=== PATIENT | male | born 1950 | race African-American/Black ===

== ENCOUNTER 2021-03-12 19:52 | Inpatient (IN) | payer MEDICARE ==
[~2021-03-12] VITALS: Ht 177.8 cm; Wt 77.1 kg
--- NOTE | 2021-03-12 00:15 | NUR ---
MOLD YARN SUPERVISOR OPENING REPORT GOTTEN FROM MALLORY CHARLES. PATIENT CAME IN THE UNIT AT THIS TIME VIA GURNEY. PATIENT DROWSY BUT EASY TO AROUSE AND CAN ANSWER QUESTIONS. PATIENT AMBULATORY. NO S/S OF DISTRESS, PUT IN TO 3L OF OXYGEN, TOLERATING. NO C/O PAIN JENNIFER. INTACT SKIN. NO FLUIDS RUNNING. VS FOLLOWS: T- 98%; P- 86, 02 SAT 96, BP- 143/79, RR- 20. WILL CONTINUE TO MONITOR.
--- NOTE | 2021-03-12 20:11 | NUR ---
PT AAOX4. BIBS FOR C/O COUGH, CONGESTION AND DIFFICULTY BREATHING. PLACED IN BED 3 ON MONITOR AND PULSE OX.
[2021-03-12] MEDS ORDERED: ALBUTEROL FS 2.5 MG/0.5 ML VIAL.NEB NEB ONE (20:30)
[2021-03-12] MEDS ORDERED: IPRATROPIUM NEB FS 0.5 MG/2.5 ML AMPUL.NEB NEB ONE (20:30)
[2021-03-12] MEDS ORDERED: IPRATROPIUM NEB FS 0.5 MG/2.5 ML AMPUL.NEB ONE (20:36)
[2021-03-12] MEDS ORDERED: ALBUTEROL FS 2.5 MG/3 ML VIAL.NEB ONE (20:36)
--- NOTE | 2021-03-12 20:45 | NUR ---
RT CALLED FOR BREATHING TREATMENT
[2021-03-12 20:50] LABS: BASOPHILS # (AUTO) 0.1 /CMM (0.0-0.2); BASOPHILS % (AUTO) 0.7 % (0.0-2.0); EOSINOPHILS % (AUTO) 2.4 % (0.0-6.0); HEMATOCRIT 48 % (39-51); HEMOGLOBIN 15.6 g/dL (13.5-17.5); LYMPHOCYTES # (AUTO) 1.7 /CMM (0.8-4.8); LYMPHOCYTES % (AUTO) 23.2 % (20.0-44.0); MEAN CORPUSCULAR HGB CONC 33 g/dl (31.0-36.0); MEAN CORPUSCULAR VOLUME 85 fL (80-96); MONOCYTES # (AUTO) 0.7 /CMM (0.1-1.30); MONOCYTES % (AUTO) 9.4 % (2.0-12.0); NEUTROPHILS # (AUTO) 4.7 /CMM (1.8-8.9); NEUTROPHILS % (AUTO) 64.3 % (43.0-81.0); PLATELET COUNT (AUTO) 342 /CMM (150-450); RED BLOOD CELL COUNT(AUTO) 5.66 MIL/uL (4.5-6.0); WHITE BLOOD COUNT (AUTO) 7.3 K/uL (4.3-11.0)
[2021-03-12 20:56] LABS: CALCIUM, SERUM 9.4 mg/dL (8.5-10.1); CARBON DIOXIDE 32 mmol/L (21-32); CHLORIDE 101 mmol/L (98-107); CREATININE 1.3 mg/dL (0.6-1.3); GLUCOSE 82 mg/dL (74-106); POTASSIUM 3.7 mmol/L (3.5-5.1); SODIUM SERUM 139 mmol/L (136-145); UREA NITROGEN, BLOOD 15 mg/dL (7-18)
[2021-03-12 21:09] LABS: ALANINE AMINOTRANSFERASE 14 U/L (12-78); ALBUMIN 3.6 g/dL (3.4-5.0); ALKALINE PHOSPHATASE 105 U/L (46-116); ASPARTATE AMINOTRANSFERASE 17 U/L (15-37); BILIRUBIN,TOTAL 0.6 mg/dL (0.2-1.0); NT-PRO BNP 196 pg/mL (0-125); TOTAL PROTEIN, SERUM 8.7 g/dL (6.4-8.2)
--- NOTE | 2021-03-12 22:01 | NUR ---
called leora valladares image read. being read currently
--- NOTE | 2021-03-12 22:27 | NUR ---
PT SAT 92-93%. PLACED ON 2L NC, SAT 95%.
[2021-03-12] MEDS ORDERED: AZITHROMYCIN 500 MG in IV D5W 250 ML IV ONE (22:30)
[2021-03-12] MEDS ORDERED: CEFTRIAXONE 1 G in IV D5W 50 ML IV ONE (22:30)
[2021-03-12] MEDS ORDERED: CEFTRIAXONE 1GM BAG (ER ONLY) 50 ML IV ONE (22:39)
[2021-03-12] MEDS ORDERED: AZITHROMYCIN 500 MG VIAL ONE (22:48)
--- NOTE | 2021-03-12 23:25 | NUR ---
covid negative, per lab
--- NOTE | 2021-03-13 00:39 | NUR ---
REPORT GIVEN, PT TRANSFERED PER ACLS PROTOCOL
[2021-03-13 02:10] VITALS: BP 143/79
[2021-03-13 04:03] VITALS: BP 140/85
[2021-03-13] MEDS ORDERED: BENZONATATE 100 MG CAPSULE PO PRN (05:00)
[2021-03-13] MEDS ORDERED: ACETAMINOPHEN 325 MG TABLET PO PRN (05:00)
[2021-03-13] MEDS ORDERED: ONDANSETRON HCL/PF 4 MG/2 ML VIAL IVP PRN (05:00)
[2021-03-13] MEDS ORDERED: Z GUARD REMEDY 2 OZ OINT TP PRN (05:00)
[2021-03-13] MEDS ORDERED: ZOLPIDEM TARTRATE 5 MG TABLET PO PRN (05:00)
[2021-03-13] MEDS: ENOXAPARIN SODIUM 40 MG/0.4 ML DISP.SYRIN SQ SCH (05:05)
--- NOTE | 2021-03-13 06:53 | NUR ---
MS RN CLOSING PATIENT IN BED WITH EYES CLOSED, EASY TO AROUSE. PATIENT ABLE TO MAKE NEEDS KNOWN. ALL NEEDS ATTENDED. NO S/S OF DISTRESS TOLERATING 3LPM OXYGEN VIA NC. PATIENT AMBULATES TO THE RESTROOM. L. AC IV IN SALINE LOCK. SAFETY KEPT IN PLACE THE WHOLE SHIFT: BED IN LOWEST, LOCKED POSITION, HOB ELEVATED, CALL LIGHT WITHIN REACH. WILL ENDORSE CARE TO MORNING SHIFT RN
[2021-03-13] MEDS: methylPREDNISolone SOD SUCC 40 MG/ML VIAL IV SCH ×3 (07:02→20:55)
--- NOTE | 2021-03-13 07:30 | NUR ---
m/s deckhand: notes received pt in bed awake, a/ox4, easily irritated, and demanding. pt refused skin assessment, pt only wearing his boxer, gown offered. noted with coughing. instructed to call for assistance. will continue to monitor.
[2021-03-13] MEDS ORDERED: NIFE30TA91 PO (07:59)
[2021-03-13 08:00] VITALS: BP 143/92
--- NOTE | 2021-03-13 08:00 | NUR ---
m/s orthopedic physician assistant: md visit seen and examined by DOMINIQUE (STEPHANIE) with new orders. for pulmo consult.
[2021-03-13] MEDS: IPRATROPIUM NEB FS 0.5 MG/2.5 ML AMPUL.NEB NEB SCH ×5 (08:12→23:33)
[2021-03-13] MEDS: ALBUTEROL FS 2.5 MG/3 ML VIAL.NEB NEB SCH ×5 (08:12→23:33)
[2021-03-13] MEDS: PANTOPRAZOLE 40 MG TABLET.DR PO SCH (08:44)
[2021-03-13] MEDS: GUAIFENESIN LA 600 MG TABLET.SA PO SCH ×2 (08:44→20:56)
[2021-03-13] MEDS: DOXYCYCLINE 100 MG in IV D5W 100 ML IV SCH ×2 (09:21→21:32)
[2021-03-13 09:24] LABS: ABG BASE EXCESS 2.8 mmol/L; ABG PCO2 34.4 mmHg (35.0-45.0); ABG PO2 59.9 mmHg (75.0-100.0); AaDO2 48.6 mmHg; COHb 0.8 % (0.5-1.5); MetHb 0.3 % (0.0-1.5); SITE, ABG Right Radial; VENT MODE, BG room air
--- NOTE | 2021-03-13 10:00 | NUR ---
m/s strategic planning specialist: pulmo consult seen and examined by dr. haynes with order. order acknowledged.
--- NOTE | 2021-03-13 14:00 | NUR ---
m/s general ledger accountant: notes noted iv out, per pt he removed because it was bothering him. inserted new iv to left hand, gauge #22.
[2021-03-13 16:00] VITALS: BP 133/70
--- NOTE | 2021-03-13 17:30 | NUR ---
m/s joint special operations: notes pt hand me his iv line, stated, it got pulled out by accident.
--- NOTE | 2021-03-13 18:45 | NUR ---
m/s business process associate: notes about to start iv insertion, but 2 friends came in at this time, pt wants to wait 'til they are gone for iv insertion.
[2021-03-13 20:00] VITALS: BP 120/71
--- NOTE | 2021-03-13 20:00 | NUR ---
MS RN OPENING NOTE RECEIVED PT AWAKE IN BED. A/O X4. PT ON 3LPM O2 VIA NC. NO SOB NOTED. NO S/S OF RESPIRATORY DISTRESS. PT IS AMBULATORY WITH [facility]. PT HAS NO C/O PAIN AT THIS TIME. IV ACCESS NOTED IN RIGHT WRIST #22, SALINE LOCKED. IV IS INTACT, PATENT, AND FLUSHING WELL. SAFETY MEASURES MAINTAINED. BED IN LOWEST LOCKED POSITION, HOB ELEVATED, SIDE RAILS UP X2. CALL LIGHT AND TABLE WITHIN REACH. WILL CONTINUE WITH PLAN OF CARE.
[2021-03-13] MEDS: CEFTRIAXONE 1 G in IV D5W 50 ML IV SCH (20:55)
[2021-03-14] MEDS: IPRATROPIUM NEB FS 0.5 MG/2.5 ML AMPUL.NEB NEB SCH ×6 (04:12→23:02)
[2021-03-14] MEDS: ALBUTEROL FS 2.5 MG/3 ML VIAL.NEB NEB SCH ×6 (04:12→23:02)
[2021-03-14] MEDS: methylPREDNISolone SOD SUCC 40 MG/ML VIAL IV SCH ×3 (04:49→20:28)
[2021-03-14 06:28] LABS: BASOPHILS % (AUTO) 0.2 % (0.0-2.0); HEMATOCRIT 44 % (39-51); HEMOGLOBIN 14.2 g/dL (13.5-17.5); LYMPHOCYTES # (AUTO) 0.9 /CMM (0.8-4.8); LYMPHOCYTES % (AUTO) 6.8 % (20.0-44.0); MEAN CORPUSCULAR HGB CONC 32 g/dl (31.0-36.0); MEAN CORPUSCULAR VOLUME 85 fL (80-96); MONOCYTES # (AUTO) 0.7 /CMM (0.1-1.30); MONOCYTES % (AUTO) 5.1 % (2.0-12.0); NEUTROPHILS # (AUTO) 11.3 /CMM (1.8-8.9); NEUTROPHILS % (AUTO) 87.9 % (43.0-81.0); PLATELET COUNT (AUTO) 325 /CMM (150-450); RED BLOOD CELL COUNT(AUTO) 5.18 MIL/uL (4.5-6.0); WHITE BLOOD COUNT (AUTO) 12.8 K/uL (4.3-11.0)
--- NOTE | 2021-03-14 06:34 | NUR ---
MS RN CLOSING NOTE PT IN BED WITH EYES CLOSED, AROUSABLE TO STIMULATION. A/O X4. PT ON 3LPM O2 VIA NC. NO SOB NOTED. NO S/S OF RESPIRATORY DISTRESS. PT IS AMBULATORY WITH BRP. PT HAS NO C/O PAIN AT THIS TIME. IV ACCESS IS INTACT, PATENT, AND FLUSHING WELL. ALL NEEDS HAVE BEEN MET. SAFETY MEASURES MAINTAINED AT ALL TIMES. BED IN LOWEST LOCKED POSITION, HOB ELEVATED, SIDE RAILS UP X2. CALL LIGHT AND TABLE WITHIN REACH. WILL ENDORSE TO ONCOMING NURSE FOR KYLER.
[2021-03-14 07:03] LABS: ALBUMIN 3.3 g/dL (3.4-5.0); BILIRUBIN,TOTAL 0.4 mg/dL (0.2-1.0); CALCIUM, SERUM 9.3 mg/dL (8.5-10.1); CREATININE 1.1 mg/dL (0.6-1.3); MAGNESIUM 1.8 mg/dL (1.8-2.4); PHOSPHORUS 3.2 mg/dL (2.5-4.9); POTASSIUM 4.1 mmol/L (3.5-5.1)
[2021-03-14 07:20] LABS: THYROID STIMULATING HORMONE 0.14 uIU/mL (0.358-3.74)
--- NOTE | 2021-03-14 07:30 | NUR ---
MS RN NOTES RECEIVED ON BED, AWAKE, A&O X 4. NOT IN ANY FORM OF ACUTE DISTRESS NOTED. VITAL SIGNS WITHIN NORMAL LIMITS. NOTED WITH IV LINE ON RIGHT WRIST G#22, PATENT AND FLUSHES WELL. NOTED WITH NON PRODUCTIVE COUGH. SAFETY PRECAUTIONS MAINTAINED AND OBSERVED: BED AT LOWEST LOCKED POSITION, SIDE RAILS UP X2. KEPT CALL LIGHT WITHIN EASY REACH. ON IV ANTIBIOTIC, NO A/R NOTED AT THIS TIME. NO COMPLAINTS OF PAIN AT THIS TIME. WILL CONTINUE TO MONITOR PATIENT'S STATUS.
[2021-03-14 08:00] VITALS: BP 125/85
[2021-03-14] MEDS: PANTOPRAZOLE 40 MG TABLET.DR PO SCH (08:11)
[2021-03-14] MEDS: GUAIFENESIN LA 600 MG TABLET.SA PO SCH ×2 (08:11→20:28)
[2021-03-14] MEDS: ENOXAPARIN SODIUM 40 MG/0.4 ML DISP.SYRIN SQ SCH (08:13)
[2021-03-14] MEDS: DOXYCYCLINE 100 MG in IV D5W 100 ML IV SCH ×2 (08:16→20:29)
--- NOTE | 2021-03-14 11:55 | NUR ---
RN NOTES IV LINE ACCIDENTALLY PULLED OUT BY PATIENT. REINSERTED IV USING IV CATHETER G#22 ON PATIENT'S LEFT WRIST. PATENT AND FLUSHES WELL.
[2021-03-14 16:00] VITALS: BP 147/88
--- NOTE | 2021-03-14 18:24 | NUR ---
MS RN CLOSING NOTES PATIENT IN BED, AWAKE, A&O X 4. AFEBRILE, NOT IN ANY FORM OF ACUTE DISTRES NOTED. WITH O2 VIA NC AT 2LPM SATURATING WELL AT 98%. WITH IV ACCESS ON LEFT WRIST G#22, PATENT AND FLUSHES WELL. NO COMPLAINTS OF PAIN AT THIS TIME. ON IV ATB, NO A/R NOTED AT THIS TIME. SAFETY PRECAUTIONS OBSERVED AND MAINTAINED DURINGTHE SHIFT: BED ON LOWEST LOCKED POSITION, KEPT CALL LIGHT WITHIN EASY REACH. ENDORSED TO COMPENSATION ANALYST NURSE FOR CONTINUITY OF CARE.
--- NOTE | 2021-03-14 19:42 | NUR ---
MS RN OPENING NOTE PATIENT IN BED A/OX4; ABLE TO MAKE NEEDS KNOWN. TOLERATING ROOM AIR WITH NO SOB; ON AND OFF O2 2LPM N/C. DENIES PAIN OR DISCOMFORT AT THIS TIME. IV TO L WRIST #22G NS @ 75ML/HR; PATENT AND INTACT. SAFETY MEASURES IN PLACE: BED IN LOWEST LOCKED POSITION, SIDE RAILS UPX2, CALL LIGHT WITHIN EASY REACH, BED ALARMS ON. PATIENT IN STABLE CONDITION, WILL CONTINUE PLAN OF CARE.
[2021-03-14 20:00] VITALS: BP 101/69
[2021-03-14] MEDS: CEFTRIAXONE 1 G in IV D5W 50 ML IV SCH (21:34)
[2021-03-15] MEDS: ALBUTEROL FS 2.5 MG/3 ML VIAL.NEB NEB SCH ×3 (03:30→10:41)
[2021-03-15] MEDS: IPRATROPIUM NEB FS 0.5 MG/2.5 ML AMPUL.NEB NEB SCH ×3 (03:30→10:41)
[2021-03-15] MEDS: methylPREDNISolone SOD SUCC 40 MG/ML VIAL IV SCH (05:04)
[2021-03-15] MEDS: IV NS 0.9% 1,000 ML IV PRN ×2 (05:34→05:50)
[2021-03-15 06:04] LABS: BASOPHILS % (AUTO) 0.2 % (0.0-2.0); HEMATOCRIT 43 % (39-51); HEMOGLOBIN 13.8 g/dL (13.5-17.5); LYMPHOCYTES # (AUTO) 0.6 /CMM (0.8-4.8); LYMPHOCYTES % (AUTO) 4.4 % (20.0-44.0); MEAN CORPUSCULAR HGB CONC 33 g/dl (31.0-36.0); MEAN CORPUSCULAR VOLUME 85 fL (80-96); MONOCYTES # (AUTO) 0.5 /CMM (0.1-1.30); MONOCYTES % (AUTO) 3.4 % (2.0-12.0); PLATELET COUNT (AUTO) 334 /CMM (150-450); WHITE BLOOD COUNT (AUTO) 14.2 K/uL (4.3-11.0)
--- NOTE | 2021-03-15 06:16 | NUR ---
MS RN CLOSING NOTE PATIENT IN BED A/OX4; ABLE TO MAKE NEEDS KNOWN. TOLERATING 1-2 LPM VIA N/C WELL; ON AND OFF O2 2LPM N/C PRN. DENIES PAIN OR DISCOMFORT AT THIS TIME. IV TO L WRIST #22G NS @ 75ML/HR; PATENT AND INTACT. SAFETY MEASURES IN PLACE: BED IN LOWEST LOCKED POSITION, SIDE RAILS UPX2, CALL LIGHT WITHIN EASY REACH, BED ALARMS ON. PATIENT IN STABLE CONDITION, WILL ENDORSE PLAN OF CARE.
[2021-03-15 07:04] LABS: CALCIUM, SERUM 8.9 mg/dL (8.5-10.1); CREATININE 1.1 mg/dL (0.6-1.3); POTASSIUM 4.5 mmol/L (3.5-5.1)
[2021-03-15] MEDS: PANTOPRAZOLE 40 MG TABLET.DR PO SCH (07:19)
--- NOTE | 2021-03-15 07:43 | NUR ---
MS RN OPENING NOTES PATIENT IN BED, AWAKE, A&O X 4. AFEBRILE, NOT IN ANY FORM OF ACUTE DISTRESS NOTED. WITH O2 VIA NC AT 2LPM SATURATING WELL AT 97%. WITH IV ACCESS ON LEFT WRIST G#22, PATENT AND FLUSHES WELL. NO COMPLAINTS OF PAIN AT THIS TIME. STILL WITH NON PRODUCTIVE COUGH NOTED. ON IV ATB, NO A/R NOTED AT THIS TIME. SAFETY PRECAUTIONS OBSERVED AND MAINTAINED: BED ON LOWEST LOCKED POSITION, KEPT CALL LIGHT WITHIN EASY REACH. WILL CONTINUE TO MONITOR PATIENT'S CURRENT STATUS.
[2021-03-15 08:00] VITALS: BP 141/79
[2021-03-15] MEDS: GUAIFENESIN LA 600 MG TABLET.SA PO SCH (08:24)
[2021-03-15 08:25] VITALS: BP 141/79
[2021-03-15] MEDS: DOXYCYCLINE 100 MG in IV D5W 100 ML IV SCH (08:25)
[2021-03-15] MEDS: ENOXAPARIN SODIUM 40 MG/0.4 ML DISP.SYRIN SQ SCH (08:26)
--- NOTE | 2021-03-15 08:35 | NUR ---
received on 1 lpm o2 flow via nasal cannula with 94% spo2. no sob noted. Addendum: 03/15/21 at 0836 by IRWIN WAGONER RT Amended: Links added.
[2021-03-15] MEDS ORDERED: NIFEdipine XL (30MG) 30 MG TAB PO SCH (09:00)
[2021-03-15] MEDS ORDERED: ALBU18HF2 INH (09:40)
[2021-03-15] MEDS ORDERED: IPRA12.9 INH (09:40)
[2021-03-15] MEDS ORDERED: BUDE10.2 INH (09:40)
[2021-03-15] MEDS ORDERED: METH4TAB17 PO (09:40)
[2021-03-15] MEDS ORDERED: DOXY100C2 PO (09:40)
--- NOTE | 2021-03-15 11:39 | NUR ---
RN NOTES PATIENT O2 SAT ON ROOM AIR 97-98%, RISK AND INSURANCE CONSULTANT AND PENSION ADMINISTRATOR BRIANA MADE AWARE, PATIENT DOESN'T NEED OXYGEN GOING HOME AND AT HOME.
--- NOTE | 2021-03-15 13:57 | NUR ---
HAMMER ADJUSTER NOTES DISCHARGED PATIENT IN STABLE CONDITION. PATIENT IS ALERT AND ORIENTED X 4. VITAL SIGNS STABLE. HEALTH EDUCATION/TEACHINGS DONE WITH PATIENT AND FRIEND (FANG). HOME MEDICATIONS EXPLAINED TO PATIENT AND FRIEND (FANG), EDUCATED ON SMOKING CESSATION, PATIENT AND FRIEND VERBALIZED UNDERSTANDING. INSTRUCTED TO FOLLOW UP WITH PCP AND FORMING ROLL OPERATOR AT [facility] ON 03/21/2021 AT 11:15 AM. ALL BELONGINGS SIGNED AND ACCOUNTED FOR. IV REMOVED, COVERED SITE WITH DRY GAUZE AND SECURED WITH TAPE, NO BLEEDING NOTED. ARMBAND REMOVED. WHEELED TO LOBBY BY [facility] [employer], ACCOMPANIED BY FRIEND FANG.
== END 2021-03-15 13:00 | disposition home or self-care (01) | DRG 189 ==
LOC: ER 19:54 → TELE 23:55 → MED 03-13 05:03
PROVIDERS: ADMIT Nurse Practitioner Acute Care; ATTEND Nurse Practitioner Acute Care
DX: J96.01 Acute respiratory failure with hypoxia (principal); J44.1 Chronic obstructive pulmonary disease with (acute) exacerbation; J44.0 Chronic obstructive pulmonary disease with (acute) lower respiratory infection; J20.9 Acute bronchitis, unspecified; I10 Essential (primary) hypertension; F17.200 Nicotine dependence, unspecified, uncomplicated; R94.4 Abnormal results of kidney function studies
CPT/HCPCS: 36415; 36600; 71045-TC; 71250-TC; 80048-TC; 80053-TC; 80061-TC; 82803-TC; 83735-TC; 83880; 84100-TC; 84439-TC; 84443-TC; 84484-TC; 85025-TC; 87040-TC; 87070-TC; 87081-TC; 94799-TC; C9803; G0378; J0456; J0696; J1650; J2920; J3490; J7030; J7050; J7060

== ENCOUNTER 2021-03-26 13:41 | Outpatient (CLI) | payer MEDICARE ==
[~2021-03-26 13:41] MED LIST: ALBU18HF2 INH; BUDE10.2 INH; DOXY100C2 PO; IPRA12.9 INH; METH4TAB17 PO; NIFE30TA91 PO
== END 2021-03-26 23:59 | disposition home or self-care (01) ==
LOC: MSC 13:41
PROVIDERS: ATTEND Internal Medicine
DX: J44.1 Chronic obstructive pulmonary disease with (acute) exacerbation (principal); Z72.0 Tobacco use; I95.9 Hypotension, unspecified; D64.9 Anemia, unspecified

== ENCOUNTER → 2021-05-14 | Outpatient (CLI) | payer MEDICARE | END | disposition home or self-care (01) | LOC: MSC 14:30 | PROVIDERS: ATTEND Internal Medicine | DX: J44.1 Chronic obstructive pulmonary disease with (acute) exacerbation (principal); Z72.0 Tobacco use; I10 Essential (primary) hypertension; D64.9 Anemia, unspecified ==

== ENCOUNTER 2022-04-12 11:30 | Emergency (ER) | payer OTHER ==
[~2022-04-12] VITALS: Ht 177.8 cm; Wt 77.6 kg
--- NOTE | 2022-04-12 11:56 | NUR ---
RECEIVED PT 71 YRS MALE CAME BY WC C/O ABDONINAL PAIN FOR 6MONTH abdmone soft none teder to touch
--- NOTE | 2022-04-12 12:05 | NUR ---
BLOOD DROW AND SENT TO LAB
--- NOTE | 2022-04-12 12:10 | NUR ---
SEEN BY DR. GARRISON
--- NOTE | 2022-04-12 12:11 | NUR ---
TO CT SCAN OF ABDOMIN
[2022-04-12 12:23] LABS: BASOPHILS # (AUTO) 0.1 K/uL (0.0-0.2); BASOPHILS % (AUTO) 0.9 % (0.0-2.0); EOSINOPHILS % (AUTO) 1.9 % (0.0-6.0); HEMATOCRIT 46 % (39-51); HEMOGLOBIN 14.8 g/dL (13.5-17.5); LYMPHOCYTES # (AUTO) 1.4 K/uL (0.8-4.8); LYMPHOCYTES % (AUTO) 22.8 % (20.0-44.0); MEAN CORPUSCULAR HGB CONC 32 g/dl (31.0-36.0); MEAN CORPUSCULAR VOLUME 83 fL (80-96); MONOCYTES # (AUTO) 0.5 K/uL (0.1-1.30); MONOCYTES % (AUTO) 7.7 % (2.0-12.0); NEUTROPHILS # (AUTO) 4.1 K/uL (1.8-8.9); NEUTROPHILS % (AUTO) 66.7 % (43.0-81.0); PLATELET COUNT (AUTO) 300 K/uL (150-450); RED BLOOD CELL COUNT(AUTO) 5.52 MIL/uL (4.5-6.0); WHITE BLOOD COUNT (AUTO) 6.2 K/uL (4.3-11.0)
[2022-04-12 12:32] LABS: BILIRUBIN,URINE NEGATIVE (NEGATIVE); COLOR,URINE YELLOW (YELLOW); LEUKOCYTE ESTERASE ,URINE NEGATIVE (NEGATIVE); NITRITE, URINE NEGATIVE (NEGATIVE); PROTEIN,URINE NEGATIVE (NEGATIVE); UGLUCOSE NEGATIVE (NEGATIVE); UROBILINOGEN,URINE 0.2 EU/dL (0.2)
[2022-04-12 12:41] LABS: CALCIUM, SERUM 9.4 mg/dL (8.5-10.1); CREATININE 1.2 mg/dL (0.6-1.3); POTASSIUM 3.3 mmol/L (3.5-5.1)
[2022-04-12 12:43] LABS: RBC,URINE 0-2 /HPF (0-2); WBC,URINE NONE SEEN /HPF (0-3)
[2022-04-12 12:44] LABS: BACTERIA,URINE Rare /HPF (None Seen); SQUAMOUS EPITHELIAL CELL,UR Few /HPF (None Seen)
[2022-04-12 12:46] LABS: BILIRUBIN,DIRECT 0.1 mg/dL (0.0-0.2); BILIRUBIN,TOTAL 0.6 mg/dL (0.2-1.0); TOTAL PROTEIN, SERUM 8.8 g/dL (6.4-8.2)
[2022-04-12 13:23] LABS: THYROID STIMULATING HORMONE 0.342 uIU/mL (0.358-3.74)
[2022-04-12] MEDS ORDERED: KETOROLAC TROMETHAMINE 15 MG/ML VIAL ONE (13:59)
[2022-04-12] MEDS ORDERED: KETOROLAC TROMETHAMINE INJ 30 MG/ML VIAL IV ONE (14:00)
--- NOTE | 2022-04-12 15:50 | NUR ---
Edmundo swap snt to lab
--- NOTE | 2022-04-12 16:00 | NUR ---
CALL FROM KARLEE NOLASCO TAPER OPERATOR, WILL WORK ON TX TO [facility]. WANTS COVID TEST DONE AND A NOTE IN MD DICTATION SAYING PATIENT IS STABLE FOR TX AND TO BE FAXED TO [facility]. DR OATES INFORMED
[2022-04-12] MEDS ORDERED: PIPERACILLIN /TAZOBACTAM 3.375 G in IV D5W 50 ML IV ONE (16:30)
--- NOTE | 2022-04-12 16:30 | NUR ---
CALL FROM DR JASSO,SPOKE WITH DR OATES, ACCEPTED PT TO GO TO [facility]
[2022-04-12] MEDS ORDERED: PIPERACILLIN /TAZOBACTAM 3.375 G VIAL IV ONE (16:36)
--- NOTE | 2022-04-12 18:11 | NUR ---
[facility] FOR ACCEPTING [facility] AND TRANSFER
--- NOTE | 2022-04-12 19:30 | NUR ---
HAND OFF TO DUDLEY SWEENEY
--- NOTE | 2022-04-12 19:41 | NUR ---
CLINICALS REFAXED TO [facility]
[2022-04-12 21:06] VITALS: BP 127/61
--- NOTE | 2022-04-12 21:06 | NUR ---
PT RESTING COMFORTABLY IN BED, CONNECTED TO MONITOR. VSS. WILL CONTINUE TO MONITOR.
--- NOTE | 2022-04-12 21:41 | NUR ---
TRANSFER INFO: PT GOING TO [facility] ROOM 307-A, RN FOR REPORT RYLAN [phone], ETA TO FOLLOW PER CM
--- NOTE | 2022-04-12 22:07 | NUR ---
[facility] DR SHIPMAN ACCEPTING DOCTOR ROOM 305 A JANNET RN [phone] [facility] ETA MIDNIGHT. PER SPIN INSTRUCTOR
--- NOTE | 2022-04-12 22:21 | NUR ---
REPORT GIVEN TO JNANET SWEENEY AT [facility] FOR [facility]YLER
--- NOTE | 2022-04-12 23:01 | NUR ---
[facility] ARRIVED FOR TRANSPORTATION
== END 2022-04-13 00:11 | disposition short-term general hospital (02) ==
LOC: ER 11:40
DX: R10.2 Pelvic and perineal pain (principal); R41.82 Altered mental status, unspecified; I10 Essential (primary) hypertension; Z86.73 Personal history of transient ischemic attack (TIA), and cerebral infarction without residual deficits; Z20.822 Contact with and (suspected) exposure to COVID-19
CPT/HCPCS: 36415; 70450; 71045; 74176; 80048; 80076; 80307; 81001; 82140; 83605; 83690; 83880; 84443; 84484 ×2; 85025; 85730; 87040 ×2; 87426; 96365; 96375; 99291; J1885; J2543 ×2; J7060; C9803